=== PATIENT | female | born 1965 | race Caucasian/White ===

== ENCOUNTER 2022-12-02 09:33 | Emergency (ER) | payer MEDICAID ==
[~2022-12-02] VITALS: Ht 134.6 cm; Wt 87.8 kg
[2022-12-02 09:45] VITALS: BP 111/54; PULSE 71; RESP 20; TEMP 97.7; O2SAT 97
[2022-12-02 10:13] VITALS: O2SAT 97
[2022-12-02 10:30] LABS: APPEARANCE,URINE CLEAR (CLEAR); BILIRUBIN,URINE NEGATIVE (NEGATIVE); BLOOD, URINE NEGATIVE (NEGATIVE); COLOR,URINE YELLOW (YELLOW); LEUKOCYTE ESTERASE ,URINE NEGATIVE (NEGATIVE); NITRITE, URINE NEGATIVE (NEGATIVE); PROTEIN,URINE NEGATIVE (NEGATIVE); UGLUCOSE NEGATIVE (NEGATIVE); UROBILINOGEN,URINE 0.2 EU/dL (0.2 - 1)
[2022-12-02 11:14] LABS: BASOPHILS # (AUTO) 0.1 K/uL (0.00-0.22); BASOPHILS % (AUTO) 1.1 % (0.0-2.0); EOSINOPHILS # (AUTO) 0.3 K/uL (0-0.4); HEMATOCRIT 40.6 % (36-48); HEMOGLOBIN 13.4 g/dL (12.0-16.0); LYMPHOCYTES # (AUTO) 2.1 K/uL (2.5-16.5); LYMPHOCYTES % (AUTO) 30.4 % (20.5-51.1); MEAN CORPUSCULAR HEMOGLOBIN 29 pg (27-31); MEAN CORPUSCULAR HGB CONC 33 g/dL (33-37); MEAN CORPUSCULAR VOLUME 87.9 fL (80-94); MONOCYTES # (AUTO) 0.5 K/uL (0.8-1.0); NEUTROPHILS # (AUTO) 3.8 K/uL (1.8-7.7); NEUTROPHILS % (AUTO) 56.5 % (42.2-75.2); PLATELET COUNT (AUTO) 253 K/uL (140-450); RED BLOOD CELL COUNT(AUTO) 4.62 MIL/uL (4.20-5.40); RED CELL DISTRIBUTION WIDTH 14.5 % (11.6-13.7); WHITE BLOOD COUNT (AUTO) 6.8 K/uL (4.8-10.8)
[2022-12-02 11:28] LABS: ALBUMIN 3.5 g/dL (3.4-5.0); ANION GAP 12.9 (8-16); CALCIUM 8.5 mg/dL (8.5-10.1); CREATININE 0.8 mg/dL (0.6-1.3); POTASSIUM 3.9 mmol/L (3.5-5.1); TOTAL BILIRUBIN 0.4 mg/dL (0.0-1.0); TOTAL PROTEIN, SERUM 7.4 g/dL (6.4-8.2)
[2022-12-02] MEDS: NACL 0.9% 1,000 ML IV ONE (12:30)
[2022-12-02] MEDS ORDERED: BEN10 PO (12:35)
[2022-12-02] MEDS ORDERED: POLY17PD72 PO (12:35)
[2022-12-02] MEDS ORDERED: ONDA-188 SL (12:35)
[2022-12-02] MEDS: MORPHINE SULFATE 4 MG/ML SYR IVP ONE (12:41)
[2022-12-02] MEDS: ONDANSETRON 4 MG/2 ML VIAL IVP ONE (12:41)
[2022-12-02 13:45] VITALS: BP 112/56; PULSE 72; RESP 18; TEMP 97.7
[2022-12-02 13:51] VITALS: O2SAT 97
== END 2022-12-02 13:45 | disposition home or self-care (01) ==
LOC: MED 09:33
DX: R10.9 Unspecified abdominal pain (principal); E11.65 Type 2 diabetes mellitus with hyperglycemia; Z90.710 Acquired absence of both cervix and uterus; Z79.899 Other long term (current) drug therapy
CPT/HCPCS: 36415; 74176; 80053; 81003; 81025; 83690; 84484; 85025; 93005; 96361; 96374; 96375; 99285; J2270; J2405